=== PATIENT | female | born 1945 | race Caucasian/White ===

== ENCOUNTER → 2016-12-30 | Outpatient (CLI) | payer MEDICARE ==
[~2016-12-30] MED LIST: AMLODIPINE BESYL5 MG PO; CENTRUM PO; CYANOCOBAL1000 MCG/1 INJ; ENTRESTO 24 MG1 EACH PO; GLIPIZIDE ER PO; GLIPIZIDE2.5 MG/BOT PO; GLUCOPHAGE500 M1 PO; LEVOTHYROXINE88 MCG PO; LISINOPRIL-HCTZ1 T19 PO; METFORMIN HCL500 M1 PO; METOPROLOL SUCC25 MG PO; OMEPRAZOLE20 M2 PO; PRAVASTATIN SOD10 MG PO; PROAIR; STIOLTO RESPIMAT4 GM INH; SYNTHROID75 MCG PO; VITAMIN D31000 UNI1 PO; [UNRECOGNIZED DRUG - OTHER] SUBQ
--- NOTE | ~2016-12-30 | MY11 ---
[facility] A Service of [facility] RADIOLOGY TEXT RESULTS PATIENT: NOAH ANDERSON LOCATION: [facility] : 47 UNIT #: [id number] AGE: [address]: SALAS ALVAREZ MD SEX: F ORDER DR: [id number] [facility] [address] [place], [place] [address] [id number] O MR#: [id number] Acc #: [id number] NAME: NOAH ANDERSON. : 1945 SEX: F STUDY DATE/TIME: 12/30/2016 10:31 UNIT: [facility] ROOM: STUDY DESCRIPTION: MY Mammogram Screening Dig Oral Attending Physician: Salas Alvarez M.D. Ordering Physician: Salas Alvarez M.D. Primary Care Physician: Salas Alvarez M.D. MEDICAL IMAGING REPORT This report is preliminary unless electronic signature is present EXAM Digital screening mammogram 12/30/2016 HISTORY 71-year-old woman previous excisional right breast biopsy. Positive family history of other cancer in mother and sister. Annual screen. COMPARISON Mammograms date to 09/23/2007 with most recent 12/27/2015. FINDINGS Digital imaging of each breast was completed utilizing screening protocol. Biopsy marker was placed lateral right breast. Additional exaggerated craniocaudal view of the left breast is included. Breast parenchyma is fatty replaced and stable. There is no breast mass. There are no interval occurring microcalcifications and no architectural deformity. IMPRESSION Negative mammogram. Annual screening recommended. Patients over the age of 40 are entered into a reminder system with target due date for the next mammogram. A result letter will also be sent to the patient. BIRADS: 1 Negative Dictated by... Yeyo Dia M.D. THIS IS AN ELECTRONICALLY VERIFIED REPORT [facility] A Service [facility] RADIOLOGY TEXT RESULTS PATIENT: NOAH ANDERSON LOCATION: [facility] : 47 UNIT #: [id number] AGE: [address]: SALAS ALVAREZ MD SEX: F ORDER DR: Yeyo Dia M.D. at 12/31/2016 10:53 AM LISANDRO/maddison TD: 12/30/2016 13:16 JOB #: [id number] MEDICAL IMAGING REPORT Page 1 of 1 COPY
== END | disposition home or self-care (01) ==
LOC: CWCC 10:06
DX: Z12.31 Encounter for screening mammogram for malignant neoplasm of breast (principal); Z80.3 Family history of malignant neoplasm of breast; Z98.890 Other specified postprocedural states
CPT/HCPCS: G0202

== ENCOUNTER 2017-02-07 03:34 | Emergency (ER) | payer MEDICARE ==
--- NOTE | ~2017-02-07 | CT4 ---
[facility]. [facility] A Service of [facility] RADIOLOGY TEXT RESULTS PATIENT: NOAH ANDERSON LOCATION: [facility] : 47 UNIT #: [id number] AGE: [address]: Brant Patiño MD SEX: F ORDER DR: [id number] [facility] [address] [place], [place] [address] [id number] E MR#: [id number] Acc #: [id number] NAME: NOAH ANDERSON. : 1945 SEX: F STUDY DATE/TIME: 02/07/2017 3:59 UNIT: [facility] ROOM: STUDY DESCRIPTION: CT Abd and Pelv Wo Cont Attending Physician: Brant Patiño M.D. Ordering Physician: Brant Patiño M.D. Primary Care Physician: Michelle Rodriguez M.D. MEDICAL IMAGING REPORT This report is preliminary unless electronic signature is present EXAM CT abdomen and pelvis without contrast HISTORY 71-year-old female with lower abdominal pain, kidney pain, symptoms for [address] abdomen and pelvis 07/29/2012. This CT exam was performed with one or more of the following radiation dose reduction techniques: automatic exposure control, adjustment of mA and/or kV according to patient size, and iterative reconstruction. FINDINGS Axial images performed through the abdomen and pelvis without contrast. Multiplanar reconstructed images reviewed at a workstation. The lung bases demonstrates thickening interlobular septa suggesting underlying fibrosis. No acute airspace disease or consolidation. No effusions. Liver demonstrates extensive nodularity and decreased hepatic size consistent with chronic cirrhosis. There is mild splenomegaly. Multiple tubular structures seen compatible with varices. Pancreas and adrenal glands unremarkable. There is haziness throughout the mesentery particularly extending into the right lower quadrant suggests a focal inflammatory process. There is a segment a small bowel measuring about 11 cm in length with bowel wall thickening and this and may represent the potential source for the mesenteric edema. This represents nonspecific bowel wall thickening and may be infectious or inflammatory in nature. No perforation or abscess. There is a small amount of free fluid in the pelvis. No high-grade obstruction. Retroperitoneum unremarkable. Pelvis: Bladder unremarkable. Uterus surgically absent. Osseous structures unremarkable. [facility] A Service of [facility] RADIOLOGY TEXT RESULTS PATIENT: NOAH ANDERSON LOCATION: [facility] : 47 UNIT #: [id number] AGE: [address]: Brant Patiño MD SEX: F ORDER DR: IMPRESSION 1. Morphologic changes within the liver compatible with underlying cirrhosis with mild splenomegaly and extensive abdominal varices. 2. Inflammatory changes seen within the root of the mesentery and extending into the right lower quadrant with thickening of right of Gerota's fascia. Exact etiology is unclear but I suspect this may be related to small bowel process as there is a 11 cm length of small bowel with bowel wall thickening and may represent the cause of the mesenteric edema. The etiology of the small bowel thickening is unclear and may be infectious or inflammatory in nature. Correlate for inflammatory bowel disease. No obstruction, perforation or abscess. Patient does demonstrate a small amount of free fluid in the pelvis as well as fluid surrounding the liver. Dictated by... Helio Barker M.D. THIS IS AN ELECTRONICALLY VERIFIED REPORT Helio Barker M.D. at 02/07/2017 10:06 PM Kate TD: 02/07/2017 12:16 JOB #: [id number] MEDICAL IMAGING REPORT Page 1 of 1 COPY
--- NOTE | ~2017-02-07 | EKG ---
PATIENT: NOAH ANDERSON UNIT #: [id number] Ventricular Rate: 70 BPM Atrial Rate: 70 BPM P-R Interval: 156 ms QRS Duration: 82 ms Q-T Interval: 432 ms QTC Calculation(Bezet): 466 ms P [place]: 56 degrees Calculated R [place]: -15 degrees Calculated T [place]: 5 degrees Diagnosis Line: Normal sinus rhythm Diagnosis Line: Normal ECG Diagnosis Line: When compared with ECG of 20-NOV-2016 15:27, Diagnosis Line: Right bundle branch block is no longer Present Diagnosis Line: Confirmed by BREN RUTHERFORD MD ([id number]) on 02/08/2017 Diagnosis Line: 4:05:42 PM INTERPRETING MD: KRISH SCHWARZ
[2017-02-07 02:52] LABS: BASOPHIL% 0.4 % (0-2.5); EOSINOPHIL# 0.1 X10e3 (0-0.7); EOSINOPHIL% 0.5 % (0.0-7.0); HEMATOCRIT 41.6 % (35.0-45.0); HEMOGLOBIN 13.8 gm/dL (12.0-16.0); LYMPHOCYTE# 1.8 X10e3 (1.0-3.5); LYMPHOCYTE% 14.2 % (17.0-45.0); MEAN CELL VOLUME 95.9 FL (83-96); MEAN CORPUSCULAR HEMOGLOBIN 31.8 PG (28-34); MEAN CORPUSCULAR HGB CONC 33.2 g/dL (30-36); MEAN PLATELET VOLUME 7.4 FL (6.5-11.5); MONOCYTE# 0.9 X10e3 (0-1.0); MONOCYTE% 6.7 % (3.0-12.0); NEUTROPHIL% 78.2 % (40-75); PLATELET COUNT 287 X10e3 (140-420); RED BLOOD COUNT 4.34 X10e (3.90-5.30); RED CELL DISTRIBUTION WIDTH 13.2 % (11.0-15.5); WHITE BLOOD COUNT 12.8 X10e3 (4.0-10.5)
[2017-02-07 02:54] LABS: DIFF IND NO
[2017-02-07 03:08] LABS: ALBUMIN SERUM 3.7 g/dL (3.5-5.0); BILIRUBIN, DIRECT 0.1 mg/dL (0.0-0.2); BILIRUBIN,INDIRECT 0.6 mg/dL (0.0-0.9); BILIRUBIN,TOTAL 0.7 mg/dL (0.2-2.0); BUN/CREATININE RATIO 17.5; CREATININE SERUM 0.8 mg/dL (0.6-1.4); GLOM FILT RATE Estimated 74.8 mL/min (>60); POTASSIUM 3.6 mmol/L (3.5-5.1); PROTEIN TOTAL SERUM 8.7 g/dL (6.0-8.3)
[2017-02-07 04:31] LABS: URINE SOURCE CLEAN CATCH
[2017-02-07 04:34] LABS: URINE APPEARANCE CLEAR; URINE BILIRUBIN NEG (NEG); URINE BLOOD 2+ (NEG); URINE COLOR YELLOW; URINE GLUCOSE 100 MG/DL (NEG); URINE KETONE TRACE (NEG); URINE LEUKOCYTE ESTERASE TRACE (NEG); URINE NITRATE NEG (NEG); URINE PROTEIN NEG (NEG); URINE SPECIFIC GRAVITY 1.015 (1.003-1.035)
[2017-02-07 04:35] LABS: URINE BACTERIA AUWI NEG (NEGATIVE); URINE SQUAMOUS EPITHELIAL CELL OCC /[HPF]
[2017-02-07 04:37] LABS: CULTURE INDICATED? NO
== END 2017-02-07 05:10 | disposition home or self-care (01) ==
LOC: CED 03:34
PROVIDERS: Emergency Medicine
DX: K52.9 Noninfective gastroenteritis and colitis, unspecified (principal); J44.9 Chronic obstructive pulmonary disease, unspecified; I50.9 Heart failure, unspecified; Z90.710 Acquired absence of both cervix and uterus; Z90.49 Acquired absence of other specified parts of digestive tract; Z88.0 Allergy status to penicillin; Z88.2 Allergy status to sulfonamides; Z88.1 Allergy status to other antibiotic agents; Z88.8 Allergy status to other drugs, medicaments and biological substances
CPT/HCPCS: 36415; 74176; 80048; 80076; 81003; 82150; 83605; 83690; 85025; 93005; 96361; 96374; 96375; 99284; J2405; J3010

== ENCOUNTER → 2017-02-24 | Outpatient (CLI) | payer MEDICARE ==
--- NOTE | ~2017-02-24 | CT57 ---
[facility] A Service [facility] RADIOLOGY TEXT RESULTS PATIENT: NOAH ANDERSON LOCATION: [facility] : 47 UNIT #: [id number] AGE: [address]: Isaiah Haney MD SEX: F ORDER DR: [id number] [address] [address] [id number] O MR#: [id number] Acc #: [id number] NAME: NOAH ANDERSON : 1945 SEX: F STUDY DATE/TIME: 02/24/2017 13:46 UNIT: [facility] ROOM: STUDY DESCRIPTION: CT Chest Wo Cont Attending Physician: Isaiah Haney M.D. Referring Physician: Isaiah Haney M.D. Ordering Physician: Isaiah aHney M.D. Primary Care Physician: Michelle Rodriguez M.D. MEDICAL IMAGING REPORT This report is preliminary unless electronic signature is present. EXAM CT of the chest without contrast INDICATIONS Follow up pulmonary nodule. TECHNIQUE CT scan of the chest was performed without contrast. Coronal, sagittal reformatted images were obtained. This CT exam was performed with one or more of the following radiation dose reduction techniques: automatic exposure control, adjustment of mA and/or kV according to patient size, and iterative reconstruction. COMPARISON STUDIES 09/01/2016. FINDINGS Accounting for differences in technique between the 2 studies, there has been no significant change in the coarse interstitial thickening within the lungs. These changes are most consistent with pulmonary fibrosis. Stable focal 9 mm density in the posterior aspect of the left upper lobe on image 44 which may be a small nodule or more likely, probably some of fibrotic change given the findings elsewhere in the lungs. There are stable and prominent mediastinal and hilar lymph nodes which are likely reactive given the findings in the lungs. No pleural effusion. Coronary artery calcification. Limited imaging of the upper abdomen demonstrates cirrhotic morphology of the liver which is stable. Stable large upper abdominal varices. The bone windows are unremarkable. IMPRESSION Stable fibrotic changes in the lungs. [facility] A Service [facility] RADIOLOGY TEXT RESULTS PATIENT: NOAH ANDERSON LOCATION: [facility] : 47 UNIT #: [id number] AGE: [address]: Isaiah Haney MD SEX: F ORDER DR: Dictated by... Ike Barker M.D. THIS IS AN ELECTRONICALLY VERIFIED REPORT Ike Barker M.D. at 02/25/2017 7:45 AM ARS/pcl TD: 02/24/2017 21:33 JOB #: [id number] MEDICAL IMAGING REPORT Page 1 of 1
[2017-02-24 13:20] LABS: POC - CREATININE 0.99 mg/dL (0.44-1.03)
== END | disposition home or self-care (01) ==
LOC: SCT 12:57
PROVIDERS: Internal Medicine
DX: R91.1 Solitary pulmonary nodule (principal); J98.4 Other disorders of lung
CPT/HCPCS: 71250; 82565

== ENCOUNTER → 2017-03-06 | Outpatient (CLI) | payer MEDICARE ==
--- NOTE | ~2017-03-06 | US84 ---
[id number] [facility]. [facility] [address] [place], [place] [address] [id number] O MR#: [id number] Acc #: [id number] NAME: NOAH ANDERSON : 1945 SEX: F STUDY DATE/TIME: 03/06/2017 16:50 UNIT: [facility] ROOM: STUDY DESCRIPTION: US LE Veins Complete Oral Stdy Attending Physician: Michelle Rodriguez M.D. Referring Physician: Michelle Rodriguez M.D. Ordering Physician: Michelle Rodriguez M.D. Primary Care Physician: Michelle Rodriguez M.D. MEDICAL IMAGING REPORT This report is preliminary unless electronic signature is present EXAM Bilateral lower extremity venous duplex. HISTORY Lower extremity edema. EXAMINATION Duplex imaging of the lower extremities reveals patent femoral, popliteal, tibial peroneal veins bilaterally with normal venous filling in all of the visualized veins. No evidence of DVT is seen. IMPRESSION No evidence of DVT is seen in the lower extremities bilaterally. Dictated by... Fredo Sepulveda M.D. THIS IS AN ELECTRONICALLY VERIFIED REPORT Fredo Sepulveda M.D. at 03/10/2017 4:08 PM Ramonita TD: 03/07/2017 22:28 JOB #: [id number] MEDICAL IMAGING REPORT Page 1 of 1 COPY
== END | disposition home or self-care (01) ==
LOC: CNIV 16:27
DX: I87.302 Chronic venous hypertension (idiopathic) without complications of left lower extremity (principal)
CPT/HCPCS: 93970